=== PATIENT | male | born 1990 | race African-American/Black ===

== ENCOUNTER 2017-04-10 10:45 | Emergency (ER) | payer OTHER, SELFPAY ==
[2017-04-10] MEDS ORDERED: Oseltamivir 75 MG CAP ONE (11:24)
== END 2017-04-10 11:35 | disposition home or self-care (01) ==
LOC: MADERS 10:45
DX: J10.1 Influenza due to other identified influenza virus with other respiratory manifestations (principal)
CPT/HCPCS: 99283

== ENCOUNTER 2017-04-18 00:08 | Emergency (ER) | payer OTHER | END 2017-04-18 00:55 | disposition home or self-care (01) | LOC: MADERS 00:08 | DX: N48.9 Disorder of penis, unspecified (principal) | CPT/HCPCS: 99283 ==